=== PATIENT | male | born 1985 | race Caucasian/White ===

== ENCOUNTER 2017-07-18 20:00 | Emergency (ER) | payer OTHER ==
[~2017-07-18] VITALS: Ht 152.4 cm; Wt 36.4 kg
[~2017-07-18 20:00] MED LIST: ALBU2.5V3 NEB
[2017-07-18 20:02] VITALS: Ht 152.4 cm; Wt 36.4 kg
[2017-07-18] MEDS ORDERED: ALBUTEROL 0.083% (NEB) 2.5 MG/3 ML AMP HHN STA (20:49)
[2017-07-18] MEDS ORDERED: DEXAMETHASONE 10 MG/ML 1 ML INJ PO ONE (21:00)
[2017-07-18] MEDS ORDERED: IPRATROPIUM (NEB) 0.5 MG/2.5 ML AMP HHN ONE (21:00)
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
--- NOTE | 2017-07-18 21:47 | RADRPT ---
PROCEDURE: Portable chest x-ray. CLINICAL INDICATION: Cough and fever. TECHNIQUE: Portable AP view of the chest. COMPARISON: 07/13/2016. FINDINGS: Patchy opacification of the right lung is noted. The left lung is clear. The cardiac silhouette is magnified. No pleural effusion is seen. There is no pneumothorax. There is severe S-shaped scolio sis. IMPRESSION: 1. Patchy opacification of the right lung, possibly representing pneumonia. 2. Severe S-shaped scoliosis. RPTAT: HTAR .Nakul Garcia MD, MD Date Time Electronically viewed and signed by .Nakul Garcia MD, on 07/18/2017 21:46 .R/
[2017-07-18] MEDS ORDERED: AZIT200S49 PO (21:56)
[2017-07-18] MEDS ORDERED: IBUP100O10 PO (21:58)
[2017-07-18] MEDS ORDERED: HYDR15SO8 PO (21:58)
[2017-07-18 22:20] VITALS: BP 90/56; PULSE 121; RESP 20; TEMP 99.5
--- NOTE | 2017-07-19 14:52 | EN ---
Date/Time of Note Date/Time of Note DATE: 07/19/17 TIME: 14:49 ER Progress Note I called Martin's mother at 1449 and she stated patient was doing much better, he slept through the night with no fevers or any sort of discomfort. She went to the pharmacy and has been giving him his medication. I explained to mother that if any symptoms such as fever, cough or any changes in behavior she should return to the ER as soon as possible. I asked mother about recent hospitalizations and she denied any stays. She stated that Martin is usually healthy. I also told her that she should follow up with her PCP on FRIDAY. JOSÉ MIGUEL TEJEDA Jul 19, 2017 14:52
== END 2017-07-18 22:21 | disposition home or self-care (01) ==
LOC: FTE 20:00
DX: J18.9 Pneumonia, unspecified organism (principal); J45.909 Unspecified asthma, uncomplicated
CPT/HCPCS: 71010; 94664; J1100; Z7502; Z7610